=== PATIENT | female | born 1990 | race Native Hawaiian/Other Pacific Islander ===

== ENCOUNTER 2021-02-02 11:12 | Emergency (ER) | payer SELFPAY ==
[2021-02-02] MEDS ORDERED: ASPIRIN 325 MG TAB PO ONE (11:18)
[2021-02-02 12:19] VITALS: BP 164/105
[2021-02-02] MEDS ORDERED: ACETAMINOPHEN 325 MG TAB PO ONE (12:34)
--- NOTE | 2021-02-02 12:35 | Emergency Department Report ---
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 She is not known to myself previously. She states that she is not . She presents to the ER today with a complaint of nontraumatic chest wall pain, that moves to her left shoulder. This started last night. It is intermittent. She endorses vomiting last night, but this is now resolved. She is nauseous now, but states that this is now resolved. She currently denies headache, neck pain, chest pain, abdominal pain, vomiting, diaphoresis, urinary symptoms, leg pain, leg swelling, oral contraceptive use, DVT, pulmonary embolism risk factors, reports that her chest wall pain increases with palpation, and decreases with rest. -: Gradual, days(s) Location: chest Radiation: extremity Consistency: other Improves with: other Worsens with: other - Related Data Previous Rx's Medication Instructions Recorded Last Taken Type Acetaminophen [Non-Aspirin Extra 500 mg PO Q6HR PRN #30 tablet 02/02/21 Unknown Rx Strength] Ibuprofen [Motrin] 600 mg PO Q8H PRN #30 tablet 02/02/21 Unknown Rx Ondansetron [Zofran Odt] 4 mg PO Q8HR PRN #20 tab.rapdis 02/02/21 Unknown Rx Allergies Allergy/AdvReac Type Severity Reaction Status Date / Time No Known Allergies Allergy Verified 02/02/21 11:17 ED Review of Systems ROS: Stated complaint: CHEST PAIN Other details as noted in HPI Constitutional: denies: fever Eyes: denies: eye discharge ENT: denies: epistaxis Respiratory: denies: cough Cardiovascular: chest pain Gastrointestinal: nausea, vomiting. denies: abdominal pain Musculoskeletal: myalgia Neurological: denies: weakness Psychiatric: anxiety ED Past Medical Hx - Medications Home Medications: Home Medications Medication Instructions Recorded Confirmed Last Taken Type Acetaminophen [Non-Aspirin Extra 500 mg PO Q6HR PRN #30 tablet 02/02/21 Unknown Rx Strength] Ibuprofen [Motrin] 600 mg PO Q8H PRN #30 tablet 02/02/21 Unknown Rx Ondansetron [Zofran Odt] 4 mg PO Q8HR PRN #20 tab.rapdis 02/02/21 Unknown Rx ED Physical Exam - General Limitations: Language Barrier General appearance: alert, in no apparent distress, obese - Head Head exam: Present: atraumatic, normocephalic - Eye Eye exam: Present: normal appearance, EOMI. Absent: nystagmus - ENT ENT exam: Present: normal exam, normal orophraynx, mucous membranes moist, normal external ear exam - Neck Neck exam: Present: normal inspection, full ROM. Absent: tenderness, meningismus - Respiratory Respiratory exam: Present: normal lung sounds bilaterally, chest wall tenderness. Absent: respiratory distress, wheezes, rales, rhonchi, stridor, decreased breath sounds - Cardiovascular Cardiovascular Exam: Present: regular rate, normal rhythm, normal heart sounds. Absent: bradycardia, tachycardia, irregular rhythm, systolic murmur, diastolic murmur, rubs, gallop - GI/Abdominal GI/Abdominal exam: Present: soft. Absent: distended, tenderness, guarding, rebound, rigid, pulsatile mass - Extremities Exam Extremities exam: Present: normal inspection, full ROM, other (2+ pulses noted in the bilateral upper and lower extremities. There is no palpable cord. negative Homans sign. Muscular compartments are soft. The pelvis is stable.). Absent: pedal edema, calf tenderness - Back Exam Back exam: Present: normal inspection, full ROM. Absent: tenderness, CVA ten derness (R), CVA tenderness (L), paraspinal tenderness, vertebral tenderness - Neurological Exam Neurological exam: Present: alert, oriented X3, normal gait, other (No facial droop. Tongue midline. Extraocular movements intact bilaterally. Facial sensation intact to light touch in V1, V2, V3 distribution bilaterally. 5 and a 5 strength in 4 extremities. Sensation intact to light touch in 4 extremities.). Absent: motor sensory deficit - Psychiatric Psychiatric exam: Present: normal affect, normal mood - Skin Skin exam: Present: warm, dry, intact, normal color. Absent: rash ED Course Vital Signs 02/02/21 02/02/21 02/02/21 11:15 11:58 13:33 Temperature 97.7 F 98.4 F Pulse Rate 71 77 Respiratory 20 18 16 Rate Blood Pressure 146/78 164/105 O2 Sat by Pulse 100 100 Oximetry - Reevaluation(s) Reevaluation #1: 02/02/21 13:53 Differential diagnosis, including but not limited to: GERD, gastritis, hiatal hernia, pneumonia, costochondritis, coronary artery disease Assessment and plan: 30-year-old female, who reports that she is not and reports that she has not delivered her given in the past 6 weeks, who is not currently tachycardic, tachypneic or hypoxic, who denies DVT and pulmonary embolism risk factors, who is low risk by Wells criteria for pulmonary embolism, and who is PERC negative, with reproducible chest wall pain, for almost 16 to 20 hours, without observed vomiting, diaphoresis, the patient does not appear to be in any acute distress at this time. Elevated blood pressure reviewed and appreciated, the patient states she has no chronic medical conditions. Please reference the [employer] cli nical policy on asymptomatic hypertension. Equal pulses in the upper and lower extremities, no pulsatile abdominal mass. Presuming negative troponin x1, given that symptoms are present for greater than 8 hours, acute myocardial infarction is ruled out as per the [employer] clinical policy, and presuming negative troponin, patient is at low risk for major adverse cardiac event as per heart score. We will obtain appropriate laboratory studies, treat her pain, and reassess. Of note, this patient has experienced a significant delay in disposition in the emergency room, as it has taken a very long time for her laboratory studies to be obtained. This was addressed with the cotton sampler, however, we are still awaiting the laboratory studies 02/02/21 15:26 X-ray negative for acute findings. Troponin negative. Patient states that she feels improved. Resting comfortably in stretcher, and in no acute distress. Outpatient follow-up for chest wall pain ED Medical Decision Making - Lab Data Result diagrams: 02/02/21 13:58 02/02/21 13:58 Vital Signs 02/02/21 02/02/21 02/02/21 11:15 11:58 13:33 Temperature 97.7 F 98.4 F Pulse Rate 71 77 Respiratory 20 18 16 Rate Blood Pressure 146/78 164/105 O2 Sat by Pulse 100 100 Oximetry Lab Results 02/02/21 02/02/21 02/02/21 Range/Units 13:58 13:58 13:58 WBC 9.2 (4.5-11.0) K/mm3 RBC 4.04 (3.65-5.03) M/mm3 Hgb 10.9 (10.1-14.3) gm/dl Hct 34.3 (30.3-42.9) % MCV 85 (79-97) fl MCH 27 L (28-32) pg MCHC 32 (30-34) % RDW 15.5 H (13.2-15.2) % Plt Count 469 H (140-440) K/mm3 PT 13.0 (12.2-14.9) Sec. INR 0.88 (0.87-1.13) Sodium 140 (137-145) mmol/L Potassium 4.8 (3.6-5.0) mmol/L Chloride 105.1 (98-107) mmol/L Carbon Dioxide 26 (22-30) mmol/L Anion Gap 14 mmol/L BUN 9 (7-17) mg/dL Creatinine 0.6 (0.6-1.2) mg/dL Estimated GFR > 60 ml/min BUN/Creatinine Ratio 15 % Glucose 91 (65-100) mg/dL Calcium 8.9 (8.4-10.2) mg/dL Troponin T < 0.010 (0.00-0.029) ng/mL HCG, Quant (0-4) mIU/mL 02/02/21 Range/Units 13:58 WBC (4.5-11.0) K/mm3 RBC (3.65-5.03) M/mm3 Hgb (10.1-14.3) gm/dl Hct (30.3-42.9) % MCV (79-97) fl MCH (28-32) pg MCHC (30-34) % RDW (13.2-15.2) % Plt Count (140-440) K/mm3 PT (12.2-14.9) Sec. INR (0.87-1.13) Sodium (137-145) mmol/L Potassium (3.6-5.0) mmol/L Chloride (98-107) mmol/L Carbon Dioxide (22-30) mmol/L Anion Gap mmol/L BUN (7-17) mg/dL Creatinine (0.6-1.2) mg/dL Estimated GFR ml/min BUN/Creatinine Ratio % Glucose (65-100) mg/dL Calcium (8.4-10.2) mg/dL Troponin T (0.00-0.029) ng/mL HCG, Quant < 2 (0-4) mIU/mL - EKG Data -: EKG Interpreted by Me EKG shows normal: sinus rhythm Rate: normal - EKG Data When compared to previous EKG there are: previous EKG unavailable 02/02/21 13:52 The EKG is interpreted at 11: 28 Sinus rhythm, rate 63 bpm. There is a normal axis, there is high left ventricular voltage, there is a normal P wave axis, and there is motion artifact. This is an abnormal EKG, this is not a STEMI, there is no prior for comparison peer - Radiology Data Radiology results: pending, report reviewed, image reviewed CHEST 2 VIEWS INDICATION / CLINICAL INFORMATION: CHEST PAIN. COMPARISON: None available. FINDINGS: SUPPORT DEVICES: None. HEART / MEDIASTINUM: No significant abnormality. LUNGS / PLEURA: No significant pulmonary or pleural abnormality. No pneumothorax. ADDITIONAL FINDINGS: No significant additional findings. IMPRESSION: 1. No acute findings. Signer Name: Ramos Montgomery MD Signed: 02/02/2021 2:15 PM Workstation Name: [facility] Critical care attestation.: If time is entered above; I have spent that time in minutes in the direct care of this critically ill patient, excluding procedure time. ED Disposition Clinical Impression: Chest wall pain Disposition: HOME / SELF CARE / HOMELESS Is pt being admited?: No Does the pt Need Aspirin: No Condition: Good Instructions: Costochondritis Additional Instructions: Laboratory studies were within normal limits. X-ray of the chest was within normal limits. EKG was unremarkable. Pain likely coming from costochondritis, which is typically irritation and inflammation of the muscles and connective tissue of the anterior chest wall. Take the pain medication as directed, avoid excessive heavy lifting or strenuous physical activity, follow-up with an outpatient primary care doctor or homeland security program specialist in the next 3 to 5 days. For the patient's convenience, local primary care and cardiology physicians have been listed that she may call to follow-up with. Alternate ice packs and heat packs as needed for physical pain. Please return to the emergency room right away with new pain, worsened pain, migration of pain, projectile vomiting, change in mental status, confusion, inability tolerate liquid feeds, new, worsened or different symptoms not present on the initial emergency room evaluation Los estudios de laboratorio se encontraban dentro de los lmites normales. La radiografa de trax se encontraba dentro de los lmites normales. El araceli ctrocardiograma no tuvo complicaciones. Es probable que el dolor provenga de la costocondritis, que generalmente es adam irritacin e inflamacin de los msculos y el tejido conectivo de la pared anterior del trax. Cooper los analgsicos segn las indicaciones, evite levantar objetos pesados ??en exceso o la actividad fsica extenuante, tom un seguimiento con un mdico de atencin primaria o un cardilogo ambulatorio en los prximos 3 a 5 solorzano. Para conveniencia de la paciente, se morris incluido adam lista de mdicos de cardiologa y de atencin primaria a los que puede llamar para realizar un seguimiento. Alterne bolsas de hielo y bolsas de calor segn sea necesario para el dolor fsico. Regrese a la korin de emergencias de inmediato con dolor nuevo, empeoramiento del dolor, migracin del dolor, vmitos en proyectil, cambio en el estado mental, confusin, incapacidad para tolerar la alimentacin lquida, sntomas nuevos, empeorados o diferentes que no estn presentes en la evaluacin inicial de la korin de emergencias Referrals: DUARTE WEN MD [Staff Physician] - 3-5 Days ARSH GREER MD [Staff Physician] - 3-5 Days Forms: Work/School Release Form(ED) Print Language: KYRGYZ Heart Score - HEART Score History: Slightly suspicious EKG: Non-specific Age: < 45 Risk factors: 1-2 risk factors Troponin: < normal limit HEART Score: 2 - EKG Read Time Time EKG Completed: 11:28 EKG Read Time: 11:28 - Critical Actions Critical Actions: 0-3 pts:0.9-1.7%risk of adverse cardiac event.Candidate for discharge
[2021-02-02 14:26] LABS: Hematocrit 34.3 % (30.3-42.9); Hemoglobin 10.9 gm/dl (10.1-14.3); Mean Corpuscular HGB Conc 32 % (30-34); Mean Corpuscular Volume 85 fl (79-97); Platelet Count 469 K/mm3 (140-440); Red Blood Count 4.04 M/mm3 (3.65-5.03); Red Cell Distribution Width 15.5 % (13.2-15.2)
[2021-02-02 14:36] LABS: INR 0.88 (0.87-1.13)
[2021-02-02 14:52] LABS: BUN/Creatinine Ratio 15; Blood Urea Nitrogen 9 mg/dL (7-17); Calcium 8.9 mg/dL (8.4-10.2); Hemolysis Index 9
[2021-02-02] MEDS ORDERED: IBUPROFEN 400 MG TAB PO ONE (14:58)
--- NOTE | 2021-02-02 15:19 | XRay Report ---
CHEST 2 VIEWS INDICATION / CLINICAL INFORMATION: CHEST PAIN. COMPARISON: None available. FINDINGS: SUPPORT DEVICES: None. HEART / MEDIASTINUM: No significant abnormality. LUNGS / PLEURA: No significant pulmonary or pleural abnormality. No pneumothorax. ADDITIONAL FINDINGS: No significant additional findings. IMPRESSION: 1. No acute findings. Signer Name: Ramos Montgomery MD Signed: 02/02/2021 3:15 PM Workstation Name: [id number]
--- NOTE | 2021-02-03 10:19 | Electrocardiograph Report ---
[facility] Test Date: 2021-02-02 Test Time: 11:28:13 Pat Name: STACY VEE Department: Room: Gender: F [employer]ater [employer]els: NAMAN : 1990 Requested By: ED DOC Order Number: [id number] Reading MD: Sonu Arias Measurements Intervals [place] Rate: 63 P: 0 [place]: 135 QRS: -3 QRSD: 88 T: 14 QT: 413 QTc: 422 Interpretive Statements Sinus rhythm Atrial premature complex No previous ECG available for comparison Electronically Signed On 02-03-2021 10:18:35 EST by Sonu Arias
== END 2021-02-02 16:03 | disposition home or self-care (01) ==
LOC: ED 11:12
DX: R07.89 Other chest pain (principal)
CPT/HCPCS: 36415; 71046; 80048; 84484; 84702; 85027; 85610; 93005; 99284